=== PATIENT | female | born 2000 | race Hispanic/Latino ===

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

== ENCOUNTER 2019-05-29 17:40 | Emergency (ER) | payer MEDICAID ==
[2019-05-29 18:39] LABS: APPEARANCE,URINE Cloudy (CLEAR); BILIRUBIN,URINE Negative (NEGATIVE); COLOR,URINE Yellow (YELLOW); GLUCOSE, URINE (UA) Negative (NEGATIVE); KETONES,URINE Trace mg/dL (NEGATIVE); LEUKOCYTE ESTERASE ,URINE Moderate (NEGATIVE); NITRATE,URINE Negative (NEGATIVE); OCCULT BLOOD,URINE Negative (NEGATIVE); PROTEIN,URINE Negative (NEGATIVE); UROBILINOGEN,URINE 0.2 mg/dL (0.2-1.0)
[2019-05-29 19:15] LABS: RAPID GROUP A STREP NEGATIVE (NEGATIVE)
[2019-05-29 19:22] LABS: RBC,URINE 0-1 /HPF (0-1)
[2019-05-29 19:23] LABS: BACTERIA,URINE Few /HPF (None Seen); SQUAMOUS EPITHELIAL CELL,UR Moderate /HPF (0-2)
[2019-05-29 19:24] LABS: MUCUS,URINE Rare LPF (None Seen)
== END 2019-05-29 19:49 | disposition home or self-care (01) ==
LOC: EDH 17:40
DX: O23.42 Unspecified infection of urinary tract in pregnancy, second trimester (principal); Z3A.23 23 weeks gestation of pregnancy
CPT/HCPCS: 81001; 87804; 87880

== ENCOUNTER 2019-07-12 00:50 | Observation (INO) | payer MEDICAID ==
[~2019-07-12] VITALS: Ht 165.1 cm; Wt 107.5 kg
[2019-07-12 01:46] LABS: APPEARANCE,URINE Clear (CLEAR); BILIRUBIN,URINE Negative (NEGATIVE); COLOR,URINE Yellow (YELLOW); GLUCOSE, URINE (UA) Negative (NEGATIVE); KETONES,URINE Negative (NEGATIVE); LEUKOCYTE ESTERASE ,URINE Negative (NEGATIVE); NITRATE,URINE Negative (NEGATIVE); OCCULT BLOOD,URINE Large (NEGATIVE); PH,URINE 6.5 (5.0-8.0); PROTEIN,URINE Negative (NEGATIVE)
[2019-07-12 02:23] LABS: BACTERIA,URINE Rare /HPF (None Seen); RBC,URINE 26-50 /HPF (0-1); SQUAMOUS EPITHELIAL CELL,UR 0-2 /HPF (0-2); WBC,URINE 0-1 /HPF (0-1)
== END 2019-07-12 02:25 | disposition home or self-care (01) ==
LOC: EDH 00:50 → LDH 00:51
PROVIDERS: ADMIT Specialist; ATTEND Specialist
DX: O46.8X3 Other antepartum hemorrhage, third trimester (principal); N93.0 Postcoital and contact bleeding; Z87.891 Personal history of nicotine dependence; Z3A.30 30 weeks gestation of pregnancy
CPT/HCPCS: 81001; 99284; G0378 ×2

== ENCOUNTER 2019-07-25 13:48 | Observation (INO) | payer MEDICAID ==
[~2019-07-25] VITALS: Ht 165.1 cm; Wt 108.0 kg
[2019-07-25] MEDS: LACTATED RINGERS 1000ML 1,000 ML IV SCH ×2 (14:20→15:05)
[2019-07-25] MEDS ORDERED: PROMETHAZINE HCL 25 MG/ML 1ML AMPULE IM SCH (15:00)
[2019-07-25 15:01] LABS: APPEARANCE,URINE Clear (CLEAR); BILIRUBIN,URINE Negative (NEGATIVE); COLOR,URINE Yellow (YELLOW); GLUCOSE, URINE (UA) Negative (NEGATIVE); KETONES,URINE Trace mg/dL (NEGATIVE); LEUKOCYTE ESTERASE ,URINE Negative (NEGATIVE); NITRATE,URINE Negative (NEGATIVE); OCCULT BLOOD,URINE Negative (NEGATIVE); PH,URINE 6.5 (5.0-8.0); PROTEIN,URINE Negative (NEGATIVE)
[2019-07-25 15:15] LABS: BACTERIA,URINE Few /HPF (None Seen); MUCUS,URINE Few LPF (None Seen); SQUAMOUS EPITHELIAL CELL,UR Few /HPF (0-2)
[2019-07-25] MEDS ORDERED: LACTATED RINGERS 1000ML IV SCH (15:15)
[2019-07-25 16:15] LABS: BASOPHILS % (AUTO) 0.2 % (0.0-5.0); EOSINOPHILS % (AUTO) 0.7 % (0.0-8.0); HEMATOCRIT 33.9 % (36-48); LYMPHOCYTES % (AUTO) 13.1 % (21.0-51.0); MEAN CORPUSCULAR HEMOGLOBIN 28.1 pg (27.0-33.0); MEAN CORPUSCULAR HGB CONC 32.2 g/dL (32.0-36.0); MEAN CORPUSCULAR VOLUME 87.4 fL (80-100); MONOCYTES % (AUTO) 6.4 % (3.0-13.0); NEUTROPHILS % (AUTO) 79.4 % (40.0-77.0); PLATELET COUNT (AUTO) 202 K/uL (130-400); RED BLOOD CELL COUNT(AUTO) 3.88 MIL/uL (4.00-5.50); RED CELL DISTRIBUTION WIDTH 11.9 % (11.0-15.5); WHITE BLOOD COUNT (AUTO) 8.5 K/uL (4.8-10.8)
[2019-07-25 16:21] LABS: POTASSIUM 4.4 mmol/L (3.5-5.1)
== END 2019-07-25 17:00 | disposition home or self-care (01) ==
LOC: EDH 13:48 → LDH 14:11
PROVIDERS: ADMIT Specialist; ATTEND Specialist
DX: O26.893 Other specified pregnancy related conditions, third trimester (principal); R10.9 Unspecified abdominal pain; O99.513 Diseases of the respiratory system complicating pregnancy, third trimester; J45.909 Unspecified asthma, uncomplicated; Z87.891 Personal history of nicotine dependence; Z79.899 Other long term (current) drug therapy; Z3A.31 31 weeks gestation of pregnancy
CPT/HCPCS: 36415; 80051; 81001; 85025; 96372; 99284; G0378 ×3; J7120; 96360

== ENCOUNTER 2019-09-12 16:49 | Observation (INO) | payer MEDICAID ==
[~2019-09-12] VITALS: Ht 167.6 cm; Wt 117.9 kg
[2019-09-12] MEDS ORDERED: LACTATED RINGERS 1000ML 1,000 ML IV SCH (18:00)
[2019-09-12 18:03] VITALS: BP 111/57
[2019-09-12 18:13] LABS: APPEARANCE,URINE Clear (CLEAR); BILIRUBIN,URINE Negative (NEGATIVE); COLOR,URINE Yellow (YELLOW); GLUCOSE, URINE (UA) Negative (NEGATIVE); KETONES,URINE Trace mg/dL (NEGATIVE); LEUKOCYTE ESTERASE ,URINE Trace (NEGATIVE); NITRATE,URINE Negative (NEGATIVE); OCCULT BLOOD,URINE Negative (NEGATIVE); PH,URINE 5.5 (5.0-8.0); PROTEIN,URINE Trace mg/dL (NEGATIVE)
[2019-09-12 18:56] LABS: BACTERIA,URINE Few /HPF (None Seen); RBC,URINE None Seen /HPF (0-1); SQUAMOUS EPITHELIAL CELL,UR 0-2 /HPF (0-2); WBC,URINE 0-1 /HPF (0-1)
== END 2019-09-12 19:50 | disposition home or self-care (01) ==
LOC: LDH 16:49
PROVIDERS: ADMIT Specialist; ATTEND Specialist
DX: O62.9 Abnormality of forces of labor, unspecified (principal); Z3A.38 38 weeks gestation of pregnancy
CPT/HCPCS: 59025; 76819; 81001; G0378 ×3; 96360; 96361

== ENCOUNTER 2019-10-12 20:12 | Emergency (ER) | payer MEDICAID ==
[~2019-10-12 20:12] MED LIST: PREN-202 PO
[2019-10-12 21:09] LABS: BASOPHILS % (AUTO) 0.4 % (0.0-5.0); EOSINOPHILS % (AUTO) 3.5 % (0.0-8.0); HEMATOCRIT 38.8 % (36-48); LYMPHOCYTES % (AUTO) 28.3 % (21.0-51.0); MEAN CORPUSCULAR HEMOGLOBIN 25.2 pg (27.0-33.0); MEAN CORPUSCULAR HGB CONC 30.7 g/dL (32.0-36.0); MEAN CORPUSCULAR VOLUME 82.2 fL (80-100); MONOCYTES % (AUTO) 5.1 % (3.0-13.0); NEUTROPHILS % (AUTO) 62.4 % (40.0-77.0); PLATELET COUNT (AUTO) 363 K/uL (130-400); RED BLOOD CELL COUNT(AUTO) 4.72 MIL/uL (4.00-5.50); RED CELL DISTRIBUTION WIDTH 15.9 % (11.0-15.5); WHITE BLOOD COUNT (AUTO) 7.1 K/uL (4.8-10.8)
[2019-10-12 21:26] LABS: POTASSIUM 3.7 mmol/L (3.5-5.1)
[2019-10-12 21:30] LABS: ALBUMIN 3.7 g/dL (3.5-5.0); BILIRUBIN,TOTAL 0.3 mg/dL (0.2-1.0); TOTAL PROTEIN, SERUM 8.1 g/dL (6.0-8.3)
[2019-10-12 22:01] LABS: APPEARANCE,URINE Clear (CLEAR); BILIRUBIN,URINE Negative (NEGATIVE); COLOR,URINE Yellow (YELLOW); GLUCOSE, URINE (UA) Negative (NEGATIVE); KETONES,URINE Negative (NEGATIVE); LEUKOCYTE ESTERASE ,URINE Negative (NEGATIVE); NITRATE,URINE Negative (NEGATIVE); OCCULT BLOOD,URINE Moderate (NEGATIVE); PROTEIN,URINE Negative (NEGATIVE); UROBILINOGEN,URINE 0.2 mg/dL (0.2-1.0)
[2019-10-12 23:15] LABS: BACTERIA,URINE Few /HPF (None Seen); WBC,URINE 0-1 /HPF (0-1)
== END 2019-10-13 01:29 | disposition home or self-care (01) ==
LOC: EDH 20:12
DX: O90.0 Disruption of cesarean delivery wound (principal)
CPT/HCPCS: 36415; 76857; 80053; 81001; 85025; 87040

== ENCOUNTER 2020-06-15 07:09 | Emergency (ER) | payer MEDICAID ==
[2020-06-15 08:03] LABS: APPEARANCE,URINE CLEAR (CLEAR); BILIRUBIN,URINE NEGATIVE (NEGATIVE); COLOR,URINE YELLOW (YELLOW); GLUCOSE, URINE (UA) NEGATIVE (NEGATIVE); KETONES,URINE NEGATIVE (NEGATIVE); LEUKOCYTE ESTERASE ,URINE NEGATIVE (NEGATIVE); NITRATE,URINE NEGATIVE (NEGATIVE); OCCULT BLOOD,URINE NEGATIVE (NEGATIVE); PROTEIN,URINE NEGATIVE (NEGATIVE); UROBILINOGEN,URINE 0.2 mg/dL (0.2-1.0)
== END 2020-06-15 09:41 | disposition home or self-care (01) ==
LOC: EDH 07:09
DX: O9A.211 Injury, poisoning and certain other consequences of external causes complicating pregnancy, first trimester (principal); S30.1XXA Contusion of abdominal wall, initial encounter; Z98.890 Other specified postprocedural states; Z72.0 Tobacco use; Z3A.01 Less than 8 weeks gestation of pregnancy; X58.XXXA Exposure to other specified factors, initial encounter; Y93.89 Activity, other specified; Y92.89 Other specified places as the place of occurrence of the external cause; Y99.8 Other external cause status
CPT/HCPCS: 76801; 81003

== ENCOUNTER 2021-01-23 20:55 | Emergency (ER) | payer MEDICAID ==
[~2021-01-23] VITALS: Ht 165.1 cm; Wt 118.4 kg
[~2021-01-23 20:55] MED LIST changes: +PNV11TAB5 PO
[2021-01-23] MEDS ORDERED: OCTYL 2-CYANOACRYLATE 1 EACH TP ONE (21:09)
== END 2021-01-23 21:59 | disposition home or self-care (01) ==
LOC: EDH 20:55
DX: O90.0 Disruption of cesarean delivery wound (principal); Z98.890 Other specified postprocedural states; Z79.899 Other long term (current) drug therapy
CPT/HCPCS: 99282

== ENCOUNTER 2022-03-11 06:54 | Inpatient (IN) | payer MEDICAID ==
[~2022-03-11] VITALS: Ht 165.1 cm; Wt 80.7 kg
[2022-03-11] MEDS ORDERED: CEFAZOLIN SODIUM 1 GM VIAL IVP PRN (08:00)
[2022-03-11] MEDS ORDERED: LACTATED RINGERS 1000ML 1,000 ML IV SCH ×2 (08:00)
[2022-03-11] MEDS ORDERED: MORPHINE PF 100MG/10ML AMP IV ONE (09:45)
[2022-03-11] MEDS ORDERED: EPINEPHRINE PF 1MG (1:1,000) 1 MG/ML AMP ONE (09:45)
[2022-03-11] MEDS ORDERED: ONDANSETRON 4MG INJ ONE (09:53)
[2022-03-11 10:06] LABS: HEMATOCRIT 30.9 % (36-48); MEAN CORPUSCULAR HEMOGLOBIN 23.6 pg (27.0-33.0); MEAN CORPUSCULAR HGB CONC 31.4 g/dL (32.0-36.0); MEAN CORPUSCULAR VOLUME 75.2 fL (79-99); PLATELET COUNT (AUTO) 213 K/uL (130-400); RED BLOOD CELL COUNT(AUTO) 4.11 MIL/uL (4.00-5.50); RED CELL DISTRIBUTION WIDTH 15.4 % (11.0-15.5); WHITE BLOOD COUNT (AUTO) 6.2 K/uL (4.8-10.8)
[2022-03-11] MEDS ORDERED: CEFAZOLIN SODIUM 3 GM VIAL IV ONE (11:53)
[2022-03-11] MEDS ORDERED: GLYCOPYRROLATE 1 MG/5 ML SYRINGE ONE (11:59)
[2022-03-11] MEDS ORDERED: OXYTOCIN 10 UNIT/1ML 10ML VIAL ONE ×2 (12:01)
[2022-03-11] MEDS ORDERED: ROCURONIUM 10MG/1ML SYR 10 MG/ML ML ONE (12:05)
[2022-03-11] MEDS ORDERED: FENTANYL CITRATE PF 50 MCG/1 ML 2ML VIAL ONE (12:15)
[2022-03-11] MEDS ORDERED: PROPOFOL 10 MG/ML 20ML VIAL IV ONE (12:24)
[2022-03-11] MEDS ORDERED: OXYTOCIN-LR 20 UNITS/1000 ML 1,000 ML IV ONE (12:30)
[2022-03-11] MEDS ORDERED: MEPERIDINE-PF 75 MG/ML SYG ONE (13:11)
[2022-03-11] MEDS ORDERED: 0.9%NACL 10ML VIAL IVP PRN (13:30)
[2022-03-11] MEDS ORDERED: MEPERIDINE-PF 75 MG/ML SYG IM PRN (13:30)
[2022-03-11] MEDS ORDERED: PROMETHAZINE HCL 25 MG/ML 1ML AMPULE IM PRN (13:30)
[2022-03-11] MEDS ORDERED: OXYTOCIN-LR 20 UNITS/1000 ML 1,000 ML IV PRN (13:30)
[2022-03-11 15:17] VITALS: BP 119/65
[2022-03-11] MEDS: HYDROCODONE/ACETAMINOPHEN 5/325 MG TAB PO PRN (15:24)
[2022-03-11] MEDS: CALDOLOR 800MG+NS 250ML 250 ML IV SCH ×2 (15:25→23:14)
[2022-03-11 15:48] LABS: RAPID PLASMA REAGIN NONREACTIVE (NONREACTIVE)
[2022-03-11] MEDS: DEXTROSE 5 %-0.45 % NACL 1,000 ML IV PRN (20:08)
[2022-03-11] MEDS: CEFAZOLIN SODIUM 1 GM VIAL IVP SCH (20:08)
[2022-03-11 20:15] VITALS: BP 109/62
[2022-03-11 23:24] VITALS: BP 111/69
[2022-03-12] MEDS: CEFAZOLIN SODIUM 1 GM VIAL IVP SCH ×2 (03:48→12:00)
[2022-03-12 04:12] VITALS: BP 114/59
[2022-03-12] MEDS ORDERED: HYDROCODONE/ACETAMINOPHEN 5/325 MG TAB PO PRN (04:30)
[2022-03-12] MEDS ORDERED: LANOLIN 30GM OINTMENT TP PRN (04:30)
[2022-03-12] MEDS ORDERED: DIPH,PERTUSS(ACELL),TET VAC/PF 0.5 ML VIAL IM SCH (04:30)
[2022-03-12] MEDS ORDERED: ACETAMINOPHEN 500 MG TABLET PO PRN (04:30)
[2022-03-12] MEDS ORDERED: BISACODYL 10 MG SUPP.RECT RC PRN (04:30)
[2022-03-12] MEDS ORDERED: ACETAMINOPHEN WITH CODEINE 1 TAB TAB PO PRN (04:30)
[2022-03-12] MEDS ORDERED: IBUPROFEN 600 MG TABLET PO PRN (04:30)
[2022-03-12] MEDS: CALDOLOR 800MG+NS 250ML 250 ML IV SCH (06:21)
[2022-03-12] MEDS: DEXTROSE 5 %-0.45 % NACL 1,000 ML IV PRN (06:22)
[2022-03-12 07:17] LABS: HEMATOCRIT 27.3 % (36-48); MEAN CORPUSCULAR HEMOGLOBIN 23.4 pg (27.0-33.0); MEAN CORPUSCULAR HGB CONC 31.5 g/dL (32.0-36.0); MEAN CORPUSCULAR VOLUME 74.4 fL (79-99); RED BLOOD CELL COUNT(AUTO) 3.67 MIL/uL (4.00-5.50); RED CELL DISTRIBUTION WIDTH 15.3 % (11.0-15.5); WHITE BLOOD COUNT (AUTO) 6.1 K/uL (4.8-10.8)
[2022-03-12 07:17] LABS: HEPATITIS Bs ANTIGEN SCREEN P Negative (Negative)
[2022-03-12 07:50] VITALS: BP 113/67
[2022-03-12] MEDS: SIMETHICONE 80 MG TAB.CHEW PO PRN ×2 (08:57→16:07)
[2022-03-12] MEDS ORDERED: DOCUSATE SODIUM 100 MG CAP PO SCH (09:00)
[2022-03-12] MEDS: HYDROCODONE/ACETAMINOPHEN 5/325 MG TAB PO PRN (11:40)
[2022-03-12 11:55] VITALS: BP 104/69
[2022-03-12] MEDS ORDERED: ACET-2079 PO (13:04)
[2022-03-12 16:00] VITALS: BP 129/64
== END 2022-03-12 16:15 | disposition home or self-care (01) | DRG 539 ==
LOC: EDH 06:54 → LDH 06:55 → OBSVTOIN 06:55 → WSH 15:10
PROVIDERS: ADMIT Obstetrics & Gynecology; ATTEND Obstetrics & Gynecology
PROC: 10D00Z1 Extraction of Products of Conception, Low, Open Approach (ICD-10-PCS; 2022-03-11)
PROC: 0UB70ZZ Excision of Bilateral Fallopian Tubes, Open Approach (ICD-10-PCS; principal; 2022-03-11 11:45)
DX: O34.211 Maternal care for low transverse scar from previous cesarean delivery (principal); E66.01 Morbid (severe) obesity due to excess calories; O16.4 Unspecified maternal hypertension, complicating childbirth; O99.824 Streptococcus B carrier state complicating childbirth; O99.214 Obesity complicating childbirth; Z30.2 Encounter for sterilization; Z37.0 Single live birth; Z3A.38 38 weeks gestation of pregnancy
CPT/HCPCS: 36415; 59510; 85027; 86592; 86701; 86850; 86900; 86901; 87340; 87390; 90715; A4344; G0378; J0171; J0690; J1741; J2175; J2274; J2405; J2590; J2704; J3010; J3490; J7120

== ENCOUNTER 2022-03-16 22:56 | Emergency (ER) | payer MEDICAID ==
[~2022-03-16] VITALS: Ht 167.6 cm; Wt 123.8 kg
[~2022-03-16 22:56] MED LIST changes: +ACET-2079 PO; -PNV11TAB5 PO
[2022-03-16 22:58] VITALS: BP 149/80
== END 2022-03-16 23:22 | disposition home or self-care (01) ==
LOC: EDH 22:56
DX: O90.0 Disruption of cesarean delivery wound (principal); Z79.899 Other long term (current) drug therapy
CPT/HCPCS: 99281

== ENCOUNTER 2023-07-19 01:10 | Emergency (ER) | payer MEDICAID, OTHER ==
[~2023-07-19] VITALS: Ht 165.1 cm; Wt 129.3 kg
[2023-07-19 01:28] LABS: APPEARANCE,URINE CLEAR (CLEAR); BILIRUBIN,URINE NEGATIVE (NEGATIVE); COLOR,URINE LIGHT-YELLOW (YELLOW); GLUCOSE, URINE (UA) NEGATIVE (NEGATIVE); KETONES,URINE NEGATIVE (NEGATIVE); LEUKOCYTE ESTERASE ,URINE 75 Leu/uL (NEGATIVE); NITRATE,URINE NEGATIVE (NEGATIVE); OCCULT BLOOD,URINE NEGATIVE (NEGATIVE); PROTEIN,URINE 20 mg/dL (NEGATIVE); UROBILINOGEN,URINE 0.2 mg/dL (0.2-1.0)
[2023-07-19 01:29] LABS: ADD UA MICROSCOPIC YES
[2023-07-19 01:30] LABS: BACTERIA,URINE RARE /HPF (None Seen); MUCUS,URINE RARE LPF (None Seen); SQUAMOUS EPITHELIAL CELL,UR FEW /HPF (0-2)
[2023-07-19 01:32] LABS: HCG,QUALITATIVE URINE NEGATIVE (NEGATIVE)
[2023-07-19] MEDS ORDERED: CLOT15CR23 TP (01:44)
[2023-07-19 02:13] VITALS: BP 132/84; PULSE 83; RESP 16; O2SAT 99
== END 2023-07-19 02:31 | disposition home or self-care (01) ==
LOC: EDH 01:10
DX: B37.31 Acute candidiasis of vulva and vagina (principal); Z79.899 Other long term (current) drug therapy; Z98.890 Other specified postprocedural states
CPT/HCPCS: 81001; 81025; 87088